=== PATIENT | male | born 1955 | race Asian ===

== ENCOUNTER 2019-12-10 06:15 | Day surgery (SDC) | payer BC, SELFPAY ==
[~2019-12-10] VITALS: Ht 167.6 cm; Wt 71.7 kg
[2019-12-10 06:57] VITALS: BP 124/78
[2019-12-10 10:10] VITALS: BP 123/76
== END 2019-12-10 10:00 | disposition home or self-care (01) ==
LOC: DS 06:15 → GI 09:00 → OR 09:00 → DS 10:00
PROVIDERS: ATTEND Internal Medicine
DX: R19.7 Diarrhea, unspecified (principal); K57.30 Diverticulosis of large intestine without perforation or abscess without bleeding; K21.9 Gastro-esophageal reflux disease without esophagitis; K27.9 Peptic ulcer, site unspecified, unspecified as acute or chronic, without hemorrhage or perforation; K29.50 Unspecified chronic gastritis without bleeding; J05.10 Acute epiglottitis without obstruction; F17.210 Nicotine dependence, cigarettes, uncomplicated; I10 Essential (primary) hypertension; Z86.010 Personal history of colon polyps; Z11.59 Encounter for screening for other viral diseases; Z82.49 Family history of ischemic heart disease and other diseases of the circulatory system
CPT/HCPCS: 43235; 45378; J1200; J1610; J2250; J2310; J3010; J3490; U0003-CS